=== PATIENT | male | born 1945 | race Caucasian/White ===

== ENCOUNTER 2017-02-15 10:46 | Emergency (ER) | payer MEDICARE, BC ==
--- NOTE | 2017-02-15 11:58 | RADIOLOGY REPORT (SQ) ---
EXAM DESCRIPTION: CT CERVICAL SPINE WITHOUT COMPLETED DATE/TIME: 02/15/2017 11:39 am REASON FOR STUDY: fell and injured neck and thoracic back COMPARISON: None. TECHNIQUE: Axial images acquired through the cervical spine without intravenous contrast. Images re viewed with lung, soft tissue and bone windows. Reconstructed coronal and sagittal MPR images review ed. Images stored on PACS. All CT scanners at this facility use dose modulation, iterative reconstruction, and/or weight based d osing when appropriate to reduce radiation dose to as low as reasonably achievable (ALARA). [facility]: Dose Right [facility]: CareDose [facility]: Dose Right [facility]: Teradose 4D [facility]: [employer] RADIATION DOSE: 22.37 mGy. LIMITATIONS: None. FINDINGS: ALIGNMENT: Anatomic. MINERALIZATION: Normal. VERTEBRAL BODIES: Fracture through the anterior inferior corner of the body of C6 including the bridg ing osteophyte. This is best demonstrated on the sagittal reconstructed images. No fracture demonst rated in the pedicles or lamina. DISCS: Extensive exuberant bridging osteophytes throughout the cervical spine. FACETS, LATERAL MASSES, POSTERIOR ELEMENTS: Facet arthropathy. No fractures. No dislocation. No ac salvador findings. HARDWARE: None in the spine. VISUALIZED RIBS: No fractures. LUNG APICES AND SOFT TISSUES: No significant or acute findings. OTHER: No other significant finding. IMPRESSION: EXTENSIVE DEGENERATIVE CHANGES WITH BRIDGING OSTEOPHYTES. ACUTE FRACTURE INVOLVING THE ANTERIOR INFERIOR ASPECT OF THE C6 VERTEBRAL BODY DESCRIBED. COMMENT: Pertinent findings on the imaging study reported as a CRITICAL RESULT to CRISTINA FRANCISCO MD at11:52 on 02/15/2017. Category of Critical Result: Cervical spine fracture. TECHNICAL DOCUMENTATION: JOB ID: [id number] Quality ID # [id number]: Final reports with documentation of one or more dose reduction techniques (e.g., Au tomated exposure control, adjustment of the mA and/or kV according to patient size, use of iterative reconstruction technique) 2010 [employer]- All Rights Reserved
--- NOTE | 2017-02-15 11:59 | RADIOLOGY REPORT (SQ) ---
EXAM DESCRIPTION: CT THORACIC SPINE WITHOUT COMPLETED DATE/TIME: 02/15/2017 11:38 am REASON FOR STUDY: fell and injured thor back COMPARISON: None. TECHNIQUE: Axial images acquired through the thoracic spine without intravenous contrast. Images re viewed with lung, soft tissue and bone windows. Reconstructed coronal and sagittal MPR images review ed. Images stored on PACS. All CT scanners at this facility use dose modulation, iterative reconstruction, and/or weight based d osing when appropriate to reduce radiation dose to as low as reasonably achievable (ALARA). [facility]: Dose Right [facility]: CareDose [facility]: Dose Right [facility]: Teradose 4D [facility]: [employer] RADIATION DOSE: 94.9 mGy. LIMITATIONS: None. FINDINGS: VISUALIZED LUNGS: No acute opacities. No pneumothorax. SOFT TISSUES: No soft tissue swelling. No masses. VERTEBRAL BODIES: No fractures. No dislocation. No acute findings. DISCS: Extensive degenerative change with bridging osteophytes throughout the thoracic spine. ALIGNMENT: Normal. TRANSVERSE PROCESSES, POSTERIOR ELEMENTS: Hypertrophic osteophytes at multiple levels. HARDWARE: None in the spine. VISUALIZED RIBS: No fractures. OTHER: No other significant finding. IMPRESSION: CHRONIC DEGENERATIVE CHANGES WITHOUT ACUTE FRACTURE. TECHNICAL DOCUMENTATION: JOB ID: [id number] Quality ID # [id number]: Final reports with documentation of one or more dose reduction techniques (e.g., Au tomated exposure control, adjustment of the mA and/or kV according to patient size, use of iterative reconstruction technique) 2010 [employer]- All Rights Reserved
[2017-02-15] MEDS ORDERED: NORMAL SALINE 1000 ML 1,000 ML IV ONE (14:25)
--- NOTE | 2017-02-15 14:40 | ER Document Report ---
ED Neck/Back Problem - General Chief Complaint: Back Injury Stated Complaint: FALL,BACK PAIN Time Seen by Provider: 02/15/17 10:56 Notes: Yesterday, patient was standing in his boot in his garage and pulled on something and lost his balance and fell onto the garage floor, landing on his upper back and neck region. He did not have a loss of consciousness and did not have any neurologic deficits. He is here today because of pain in the lower neck posteriorly and between his shoulder blades. Patient denies any other injuries such as to his chest, abdomen, or his head. Denies any nausea or vomiting. Denies any shortness of breath or difficulty breathing. Has not had any fever. - Related Data Allergies/Adverse Reactions: No Known Allergies Allergy (Verified 02/15/17 11:13) Home Medications: Current Home Medications Lisinopril [Prinivil 2.5 mg Tablet] 2.5 mg PO DAILY 02/15/17 [History] Meloxicam [Meloxicam] 1 tab PO DAILY 02/15/17 [History] Metformin HCl [Glumetza] 500 mg PO BID 02/15/17 [History] Past Medical History - Social History Smoking Status: Never Smoker Cigarette use (# per day): No Chew tobacco use (# tins/day): No Frequency of alcohol use: None Drug Abuse: None Family History: Reviewed & Not Pertinent - Past Medical History Cardiac Medical History: Reports: Hx Hypertension Endocrine Medical History: Reports: Hx Diabetes Mellitus Type 2 GI Medical History: Reports: Other - Colostomy bowel resection, benign condition Past Surgical History: Reports: Hx Bowel Surgery - olostomy, Hx Colostomy Review of Systems - Review of Systems Notes: REVIEW OF SYSTEMS: CONSTITUTIONAL : Denies fever. EENT: Denies eye, ear, nose or mouth or throat pain or other symptoms. CARDIOVASCULAR: Denies chest pain. RESPIRATORY: Denies cough, chest congestion, or shortness of breath. GASTROINTESTINAL: Denies abdominal pain or nausea, vomiting, or diarrhea. GENITOURINARY: Denies difficulty or painful urinating, urinary frequency, blood in urine. MUSCULOSKELETAL: HPI. Denies joint pain or swelling. SKIN: Denies rash or skin lesions. NEUROLOGICAL: Denies LOC or altered mental status. Denies headache. Denies sensory loss or motor deficits. ALL OTHER SYSTEMS REVIEWED AND NEGATIVE. Physical Exam - Vital signs Vitals: Resp 16 02/15/17 10:50 Interpretation: Hypertensive - Notes Notes: PHYSICAL EXAMINATION: GENERAL: Well-appearing, in no acute distress. Vital signs normal except for slightly elevated blood pressure HEAD: Atraumatic, normocephalic. No cranial hematomas noted. EYES: Pupils equal round and reactive to light, extraocular movements intact. ENT: oropharynx clear without exudates. Moist mucous membranes. NECK: Normal range of motion, supple. There is in a hard cervical collar. LUNGS: Breath sounds clear and equal bilaterally. HEART: Regular rate and rhythm without murmurs. ABDOMEN: Soft, nontender. No guarding or rebound. BACK: No tenderness throughout entire back. EXTREMITIES: Normal range of motion without pain. NEUROLOGICAL: Normal speech. Normal sensory, motor, and reflex exams. Awake, alert, and oriented x3. Cranial nerves normal. PSYCH: Normal mood, normal affect. SKIN: Warm, dry, no rashes. Course - Re-evaluation Re-evalutation: 02/15/17 14:42 After obtaining patient's C-spine CT scan which shows a fracture of the anterior body of C6, I discussed the case with a local spine surgeon, who does not take call at this hospital. He recommended that the patient needs to be evaluated further as an inpatient for possible stabilizing surgery of a potentially unstable fracture of C6. I spoke with a PA, [place] in [place] who accepted the patient for , at [facility]. Plans on doing an MRI here prior to patient's transfer, but a bed became available at [facility] for the patient to be transported there and I did not feel we should delay the time and the patient being transferred. 02/15/17 15:18 Due to a delay in getting patient out of here to [place], MRI is available and we are going to get the MRI before patient is transferred. - Vital Signs Vital signs: Temp Pulse Resp BP Pulse Ox 97.5 F 17 188/84 H 97 02/15/17 10:56 02/15/17 11:01 02/15/17 11:00 02/15/17 11:01 - Laboratory Result Diagrams: 02/15/17 14:45 02/15/17 14:45 Laboratory results interpreted by me: 02/15/17 14:45 Plt Count 130 L - Diagnostic Test Radiology reviewed: Image reviewed, Reports reviewed - CT scan shows a fracture of the anterior inferior corner of the body of C6. No other fracture seen. Discharge - Discharge Clinical Impression: Fracture cervical vertebra-closed Qualifiers: Encounter type: initial encounter Cervical vertebra fracture level: C6 Fracture morphology: unspecified fracture morphology Fracture alignment: nondisplaced Qualified Code(s): S12.501A - Unspecified nondisplaced fracture of sixth cervical vertebra, initial encounter for closed fracture Condition: Stable Disposition: [facility]
[2017-02-15 14:54] LABS: ABSOLUTE EOSINOPHILS # (AUTO) 0.1 10^3/uL (0.0-0.6); ABSOLUTE LYMPHOCYTES (AUTO) 2.1 10^3/uL (0.5-4.7); ABSOLUTE MONOCYTES (AUTO) 0.7 10^3/uL (0.1-1.4); ABSOLUTE NEUT (AUTO) 5.5 10^3/uL (1.7-8.2); BASOPHILS % (AUTO) 0.4 % (0-2); EOSINOPHILS % (AUTO) 1.1 % (0-6); HEMATOCRIT 48.6 % (37.9-51.0); HEMOGLOBIN 15.7 g/dL (13.5-17.0); HGB HCT DIFFERENCE -1.5; LYMPHOCYTES % (AUTO) 24.9 % (13-45); MEAN CORPUSCULAR HEMOGLOBIN 28.6 pg (27.0-33.4); MEAN CORPUSCULAR HGB CONC 32.3 g/dL (32.0-36.0); MEAN CORPUSCULAR VOLUME 89 fl (80-97); MONOCYTES % (AUTO) 8.2 % (3-13); RED BLOOD COUNT 5.48 10^6/uL (4.35-5.55); RED CELL DISTRIBUTION WIDTH 13.7 % (11.5-14.0); SEGMENTED NEUTROPHILS % (AUTO) 65.4 % (42-78); WHITE BLOOD COUNT 8.4 10^3/uL (4.0-10.5)
[2017-02-15 15:21] LABS: ALANINE AMINOTRANSFERASE 34 U/L (21-72); ALBUMIN 4.2 g/dL (3.5-5.0); ALKALINE PHOSPHATASE 74 U/L (38-126); ANION GAP 15 (5-19); ASPARTATE AMINO TRANSFERASE 24 U/L (17-59); BILIRUBIN,DIRECT 0.5 mg/dL (0.0-0.4); BLOOD UREA NITROGEN 18 mg/dL (7-20); CALCIUM 9.7 mg/dL (8.4-10.2); CARBON DIOXIDE 25 mmol/L (22-30); CHLORIDE 106 mmol/L (98-107); CREATININE RESULT 0.97 mg/dL (0.52-1.25); GLUCOSE 117 mg/dL (75-110); SODIUM 145.6 mmol/L (137-145); TOTAL PROTEIN 7.4 g/dL (6.3-8.2)
[2017-02-15 16:17] VITALS: BP 209/88
--- NOTE | 2017-02-15 16:31 | RADIOLOGY REPORT (SQ) ---
EXAM DESCRIPTION: MRI CERVICAL SPINE WITHOUT COMPLETED DATE/TIME: 02/15/2017 3:53 pm REASON FOR STUDY: Fracture C6 on CT scan COMPARISON: CT cervical spine 02/15/2017 CT thoracic spine 02/15/2017 TECHNIQUE: Sagittal and Axial imaging includes T1, T2, STIR and gradient echo sequences. LIMITATIONS: None. FINDINGS: ALIGNMENT: Normal. No flexion deformity at C6-7. VERTEBRAE: There is diffuse bulky anterior longitudinal ligament ossification from C2-3 down to the i nferior field of view at T2-3. An obliquely oriented fracture through the anterior half of the C6 vertebral body is present, extendi ng from the anterior longitudinal ligament ossification at the mid C6 vertebral body level, down to t he inferior endplate of C6. No loss of C6 vertebral body height. The STIR images demonstrate mild soft tissue edema along the dorsal aspect of the C6-7 facet joints, and along the dorsal soft tissues adjacent to the T2-3 facet joints. The posterior longitudinal ligament and interspinous ligaments appear to be intact. There is no flex ion deformity. BONE MARROW: Minimal edema in the C6 vertebral body fracture. DISCS: Decreased T2 weighted intervertebral disc signal. Calcifications/ ossification at the C4-5 in tervertebral disc. HARDWARE: None in the spine. CORD AND BASE OF BRAIN: Posterior fossa not included in the field of view. No cervical cord edema or hemorrhage. SOFT TISSUES: No soft tissue masses. C1-C2: No significant spinal stenosis. C2-C3: Minimal posterior disc bulging and mild bilateral facet hypertrophy. No significant central c anal stenosis or foraminal encroachment. C3-C4: Mild diffuse posterior disc bulging with small posterior protrusion abutting the cervical cord without abnormal cord flattening or abnormal intrinsic cord signal. Mild bilateral foraminal narrow ing from facet and uncovertebral hypertrophy. C4-C5: Mild posterior disc bulge with left paracentral protrusion/bony spur abutting the leftward myles tral cord without cord flattening or abnormal intrinsic cord signal. High-grade right, mild left for aminal narrowing from facet and uncovertebral hypertrophy. C5-C6: Mild diffuse posterior disc bulging is present partly effacing the ventral thecal sac without cord flattening or abnormal intrinsic cord signal. Moderate bilateral foraminal narrowing is present from facet and uncovertebral hypertrophy C6-C7: Minimal posterior disc bulging is present without significant central stenosis. Moderate bila teral foraminal narrowing from facet and uncovertebral hypertrophy. C7-T1: No significant spinal stenosis or exit foraminal stenosis. UPPER THORACIC: Incompletely imaged. No significant spinal stenosis or exit foraminal stenosis. OTHER: No other significant finding. IMPRESSION: C6 vertebral body fracture through the anterior half, nondisplaced nonangulated. No abnormal intrinsic cervical cord signal worrisome for contusion or hemorrhage Grossly intact posterior longitudinal ligament and interspinous ligaments. Mild soft tissue edema adjacent to the C6-7 and T2-3 facet joints COMMENT: Findings discussed with Dr. Young in the emergency room, 1615 hours 02/15/2017 TECHNICAL DOCUMENTATION: JOB ID: [id number] [employer]- All Rights Reserved
== END 2017-02-15 16:17 | disposition short-term general hospital (02) ==
LOC: ER 10:46
DX: S12.501A Unspecified nondisplaced fracture of sixth cervical vertebra, initial encounter for closed fracture (principal); W17.89XA Other fall from one level to another, initial encounter; Y93.89 Activity, other specified; I10 Essential (primary) hypertension; E11.9 Type 2 diabetes mellitus without complications
CPT/HCPCS: 99285; 96360; 36415; 85025; 80053; 72141; 72125; 72128; L0172; J7030